=== PATIENT | female | born 1990 | race Caucasian/White ===

== ENCOUNTER 2017-05-29 06:09 | Inpatient (IN) | payer MEDICAID, OTHER ==
[2017-05-29] MEDS ORDERED: NS 1,000 ML IV ONE ×4 (06:23→09:32)
--- NOTE | 2017-05-29 06:32 | CPEKG ---
Heart Rate: 137 RR Interval: 438 P-R Interval: 116 QRSD Interval: 84 QT Interval: 296 QTC Interval: 447 P Stout: 74 QRS Stout: 65 T Wave Stout: -27 EKG Severity - ABNORMAL ECG - EKG Impression: SINUS TACHYCARDIA EKG Impression: NONSPECIFIC REPOL ABNORMALITY, DIFFUSE LEADS Electronically Signed By: Genaro Craft 29-May-2017 09:34:21
[2017-05-29] MEDS ORDERED: ONDANSETRON 4 MG/2 ML VIAL IVP ONE ×2 (06:35→08:48)
[2017-05-29] MEDS ORDERED: LORazepam 2 MG/ML INJ IVP ONE ×3 (06:35→08:15)
[2017-05-29 06:50] LABS: % IMMATURE GRANULYOCYTES 0.7 % (0.0-1.1); ABSOLUTE IMMATURE GRANULOCYTES 0.08 10^3/uL (0.00-0.10); ADD DIFF? NO; ADD MORPH? NO; ADD SCAN? NO; ATYPICAL LYMPHOCYTE FLAG 0 (0-99); FRAGMENT RBC FLAG 0 (0-99); HEMATOCRIT 50.9 % (38.0-47.0); HEMOGLOBIN 18.9 g/dL (12.6-16.3); LEFT SHIFT FLG 20 (0-99); LIPEMIA HEMOLYSIS FLAG 90 (0-99); MEAN CELL HEMOGLOBIN 33.5 pg (27.9-34.1); MEAN CELL HEMOGLOBIN CONCENTR. 37.1 g/dL (32.4-36.7); MEAN CELL VOLUME 90.1 fL (81.5-99.8); MEAN PLATELET VOLUME 9.5 fL (8.7-11.7); PLATELET CLUMPS FLAG 10 (0-99); PLATELET COUNT 275 10^3/uL (150-400); RED BLOOD CELL COUNT 5.65 10^6/uL (4.18-5.33)
[2017-05-29 07:06] LABS: ALANINE AMINOTRANSFERASE 167 IU/L (9-52); ALBUMIN 4.8 g/dL (3.5-5.0); ALKALINE PHOSPHATASE 139 IU/L (38-126); ANION GAP 25 mEq/L (8-16); ASPARTATE AMINOTRANSFERASE 247 IU/L (14-46); BILIRUBIN,TOTAL 2.1 mg/dL (0.1-1.4); BILIRUBIN-CONJUGATED 0.7 mg/dL (0.0-0.5); BILIRUBIN-UNCONJUGATED 1.4 mg/dL (0.0-1.1); CALCIUM 9.7 mg/dL (8.5-10.4); CARBON DIOXIDE 27 mEq/l (22-31); CHLORIDE 77 mEq/L (97-110); CREATININE 0.6 mg/dL (0.6-1.0); ETHANOL SERUM 90 mg/dL (0-10); GLOMERULAR FILTRATION RATE > 60; GLUCOSE 189 mg/dL (70-100); MAGNESIUM 1.9 mg/dL (1.6-2.3); POTASSIUM 2.8 mEq/L (3.5-5.2); SODIUM 129 mEq/L (134-144); TOTAL PROTEIN 8.2 g/dL (6.3-8.2)
[2017-05-29 07:16] LABS: TROPONIN I 0.014 ng/mL (0.000-0.034)
[2017-05-29] MEDS ORDERED: LORazepam 2 MG/ML INJ ONE ×2 (07:18→11:07)
--- NOTE | 2017-05-29 07:27 | EDPHY ---
H & P Time Seen by Provider: 05/29/17 06:54 HPI/ROS: HPI Chest pain. 26-year-old female on foot. She has a history of narcotic abuse and alcohol abuse. She complains of left anterior parasternal chest pain which she describes as sharp and worse with movement as well as worse with palpation of the area, constant for 3 days. She reports she has had some mild shortness of breath with it. No history of trauma. No history of coagulopathy. She is not on control pills. She drinks wine and rum daily. Last drink was yesterday at around 3:00 p.m.. ROS: Constitutional: No fever, no chills. No weakness. Eyes: No discharge. No changes in vision. ENT: No sore throat. No nasal congestion or rhinorrhea. Respiratory: No cough. As above. Cardiac: As above, no palpitations. Gastrointestinal: No abdominal pain, no vomiting, no diarrhea. Genitourinary: No hematuria. No dysuria or increased frequency with urination. Musculoskeletal: No back pain. No neck pain. No myalgias or arthralgias. Skin: No rashes. Neurological: No headache. No focal weakness or altered sensation. Past medical history: Tonsillectomy, alcohol abuse, narcotic abuse, substance abuse. Social history: Nonsmoker. As above. Here by herself. Physical Exam: General Appearance: Alert, anxious. This patient is responding to questions appropriately and in full sentences. This patient appears well-hydrated and well-nourished. Eyes: Pupils equal and round no pallor or injection. No lid edema, erythema or injection. Respiratory: There are no retractions, lungs are clear to auscultation with good air movement bilaterally. Cardiovascular: Regular rate and rhythm. Tachycardia. No murmur. Gastrointestinal: Abdomen is soft and nontender, no masses, bowel sounds normal. No focal tenderness at McBurney's point. No Lindsay sign. Neurological: Motor sensory function is grossly intact. Cranial nerves are normal. Gait is normal. Resting tremor. Skin: Warm and dry, no rashes. Musculoskeletal: Neck is supple and nontender. Extremities are symmetrical. All joints range without pain or impingement. Psychiatric: No agitation. No depression. Database: EKG: EKG time is 6:31 a.m.; EKG shows a narrow complex normal sinus tachycardia with a ventricular rate of 137. The SC, QRS, QT intervals are within normal limits. There are no ST-T wave changes indicative of ischemic or injury pattern. No evidence of right heart strain. Interpreted by me. Imaging: Chest x-ray AP portable; the cardiac mediastinal silhouette is unremarkable. No evidence of infiltrate or pneumothorax. No acute cardiopulmonary disease process noted. Interpreted by me. CT chest angiogram; no evidence of pulmonary embolism, pneumonia, aortic dissection, pericardial effusion. No acute pathology. Results were discussed with staff radiologist Dr. Josue Wade. Procedures: Emergency department course: IV placed. She was placed on a cigarette package examiner. Vital signs reviewed. She is tachycardic and hypertensive. She was initially given 1 mg of IV Ativan for alcohol withdrawal and anxiety. She was started on IV normal saline with 1-2 L to be given over the next 1-2 hours. I evaluated her at 7:25 a.m.. She is wide awake. States that she feels more relaxed but is still anxious. She was given an additional 1 mg of IV Ativan. She was started on a 2nd L of IV normal saline. I reviewed her EKG and chest x-ray. 8:15 a.m., patient re-evaluated. She is sitting upright. She is alert. She is still tremulous. Results of her emergency department workup discussed with her. Need for CT angiogram to evaluate for pulmonary embolism discussed. She consents. She will be given IV magnesium followed by oral potassium. She will be started on 3rd L of IV normal saline. She will be given an additional 1 mg of IV Ativan. 8:40 a.m., patient re-evaluated. She is not taking oral potassium or oral fluids. She had an episode of vomiting. She was given 4 mg of IV Zofran. She still is tachycardic in the 110s to low 120s. She is on her 3rd L of IV normal saline. She has been given 3 mg of IV Ativan. She will be given an additional 4th mg of IV Ativan. She will be admitted to the hospitalist service for alcohol withdrawal, electrolyte abnormalities and chest pain. She will be sent to CT for an angiogram shortly. 8:50 a.m., spoke with hospitalist. Patient accepted for admission to the step- down unit under the care of Dr. Leandro Fitzpatrick. Patient admitted to the step- down unit in stable condition. Differential Diagnosis: The differential diagnosis on this patient includes but is not limited to alcohol withdrawal, costal chondritis, pleurisy. Pulmonary embolism, acute coronary syndrome, myocarditis, pericarditis, pneumothorax, pneumonia unlikely. This represents a partial list of diagnoses considered. These considerations are based on history, physical exam, past history, reassessment and diagnostic testing. Smoking Status: Current some day smoker Constitutional: Initial Vital Signs Temperature (C) 36.5 C 05/29/17 06:16 Heart Rate 140 H 05/29/17 06:16 Respiratory Rate 20 05/29/17 06:16 Blood Pressure 162/93 H 05/29/17 06:16 O2 Sat (%) 93 05/29/17 06:16 O2 Delivery Mode Room Air Allergies/Adverse Reactions: penicillinase [Penicillinase] Allergy (Verified 05/29/17 06:16) Penicillins Allergy (Verified 05/29/17 06:16) Home Medications: Medication Instructions Recorded NK [No Known Home Meds] 05/29/17 Medical Decision Making - Data Points Laboratory Results: Laboratory Results 05/29/17 06:42 05/29/17 08:42 Medications Given: Gabapentin (Neurontin) 300 mg PO TID BULL Stop: 11/26/17 08:59 Last Admin: 05/30/17 09:41 Dose: 300 mg Lidocaine (Lidoderm 5%) 1 ea TD DAILY BULL Stop: 11/25/17 09:44 Last Admin: 05/30/17 08:30 Dose: 1 ea Miscellaneous Information (Patch Removal) 1 ea TD DAILY21 BULL Stop: 11/25/17 20:59 Last Admin: 05/29/17 22:14 Dose: 1 ea Oxycodone HCl (Oxycodone Ir) 5 mg PO Q4HRS PRN PRN Reason: Pain, Severe Able to Take PO Stop: 06/08/17 09:41 Last Admin: 05/30/17 09:41 Dose: 5 mg Pantoprazole Sodium (Protonix) 40 mg PO BID BULL Stop: 11/26/17 09:14 Last Admin: 05/30/17 09:40 Dose: 40 mg Thiamine HCl (Vitamin B-1) 100 mg PO DAILY BULL Stop: 11/26/17 08:59 Last Admin: 05/30/17 08:28 Dose: 100 mg Discontinued Medications Acetaminophen (Tylenol) 650 mg PO Q4HRS PRN PRN Reason: Pain, Mild/Fever, Can Take PO Stop: 11/25/17 09:43 Last Admin: 05/30/17 04:42 Dose: 650 mg Sodium Chloride (Ns) 1,000 mls @ 0 mls/hr IV EDNOW ONE; Wide Open PRN Reason: Protocol Stop: 05/29/17 06:24 Last Admin: 05/29/17 06:47 Dose: 1,000 mls Sodium Chloride (Ns) 1,000 mls @ 0 mls/hr IV EDNOW ONE; Wide Open PRN Reason: Protocol Stop: 05/29/17 06:56 Last Admin: 05/29/17 07:23 Dose: 1,000 mls Magnesium Sulfate (Magnesium Sulf 2 Gm (Premix)) 50 mls @ 50 mls/hr IV EDNOW ONE Stop: 05/29/17 09:14 Last Admin: 05/29/17 08:36 Dose: 50 mls Sodium Chloride (Ns) 1,000 mls @ 0 mls/hr IV EDNOW ONE; Wide Open PRN Reason: Protocol Stop: 05/29/17 08:17 Last Admin: 05/29/17 08:21 Dose: 1,000 mls Pantoprazole Sodium 40 mg/ (Sodium Chloride) 100 mls @ 200 mls/hr IV BID BULL Stop: 11/25/17 09:44 Last Admin: 05/29/17 22:13 Dose: 100 mls Sodium Chloride (Ns) 1,000 mls @ 3,000 mls/hr IV ONCE ONE Stop: 05/29/17 09:51 Last Admin: 05/29/17 09:44 Dose: 1,000 mls Potassium Chloride/Sodium Chloride (Ns W/ 20 Kcl/L) 1,000 mls @ 125 mls/hr IV CONT BULL Stop: 11/25/17 09:44 Last Admin: 05/29/17 22:14 Dose: 1,000 mls Thiamine HCl 500 mg/ Sodium (Chloride) 105 mls @ 210 mls/hr IV ONCE ONE Stop: 05/29/17 10:14 Last Admin: 05/29/17 13:48 Dose: 105 mls Influenza Virus Vaccine Quadrival (Fluarix Quad [id number]) 0.5 ml IM .ONCE ONE Stop: 05/29/17 22:20 Last Admin: 05/29/17 22:30 Dose: 0.5 ml Lorazepam (Ativan Injection) 1 mg IVP EDNOW ONE Stop: 05/29/17 06:36 Last Admin: 05/29/17 06:47 Dose: 1 mg Lorazepam (Ativan Injection) 1 mg IVP EDNOW ONE Stop: 05/29/17 07:20 Last Admin: 05/29/17 07:21 Dose: 1 mg Lorazepam (Ativan Injection) 1 mg IVP EDNOW ONE Stop: 05/29/17 08:16 Last Admin: 05/29/17 08:35 Dose: 1 mg Ondansetron HCl (Zofran) 4 mg IVP EDNOW ONE Stop: 05/29/17 06:36 Last Admin: 05/29/17 06:47 Dose: 4 mg Ondansetron HCl (Zofran) 4 mg IVP EDNOW ONE Stop: 05/29/17 08:49 Last Admin: 05/29/17 08:49 Dose: 4 mg Potassium Chloride (Potassium Chloride Oral Liquid) 20 meq PO EDNOW ONE Stop: 05/29/17 08:17 Last Admin: 05/29/17 08:47 Dose: Not Given Potassium Chloride (Potassium Chloride Oral Liquid) 20 meq PO EDNOW ONE Stop: 05/29/17 08:17 Last Admin: 05/29/17 08:48 Dose: Not Given Potassium Chloride (Klor-Con) 40 meq PO ONCE ONE PRN Reason: Protocol Stop: 05/29/17 16:06 Last Admin: 05/29/17 16:16 Dose: 40 meq Potassium Chloride (Klor-Con) 30 meq PO ONCE ONE PRN Reason: Protocol Stop: 05/29/17 22:13 Last Admin: 05/29/17 22:28 Dose: 30 meq Potassium Chloride (Klor-Con) 20 meq PO ONCE ONE PRN Reason: Protocol Stop: 05/30/17 07:51 Last Admin: 05/30/17 08:29 Dose: 20 meq Promethazine HCl (Phenergan) 12.5 mg IVP ONCE ONE Stop: 05/29/17 09:33 Last Admin: 05/29/17 09:39 Dose: 12.5 mg Departure - Departure Disposition: [facility] Acute Clinical Impression: Chest pain, Alcohol withdrawal, Hypokalemia, Hyponatremia, Dehydration, Tachycardia Condition: Fair
[2017-05-29] MEDS ORDERED: MAGNESIUM SULF 2 GM/WATER 50 ML IV ONE (08:15)
[2017-05-29] MEDS ORDERED: POTASSIUM CL 20 MEQ/15 ML UDCUP PO ONE ×2 (08:16)
[2017-05-29] MEDS ORDERED: IOPAMIDOL (ISOVUE 370) 100 ML BTL IV ONE (08:31)
[2017-05-29] MEDS ORDERED: ONDANSETRON 4 MG/2 ML VIAL ONE (08:39)
[2017-05-29] MEDS ORDERED: PROMETHAZINE HCL 25 MG/ML INJ IVP ONE (09:32)
[2017-05-29] MEDS ORDERED: PROMETHAZINE HCL 25 MG/ML INJ ONE (09:34)
[2017-05-29] MEDS ORDERED: PANTOPRAZOLE SODIUM 40 MG VIAL ONE (09:40)
[2017-05-29] MEDS ORDERED: ONDANSETRON 4 MG/2 ML VIAL IVP PRN (09:44)
[2017-05-29] MEDS ORDERED: ONDANSETRON DISINTEGRATING 4 MG TAB PO PRN (09:44)
[2017-05-29] MEDS ORDERED: THIAMINE HCL 500 MG in NS 100 ML IV ONE (09:45)
[2017-05-29] MEDS ORDERED: LORazepam 2 MG/ML INJ IVP PRN ×2 (09:45→11:13)
[2017-05-29] MEDS ORDERED: PROTOCOL POTASSIUM 1 DOSE MISC PRN (09:47)
[2017-05-29] MEDS ORDERED: PROTOCOL MAGNESIUM 1 DOSE IV PRN (09:47)
[2017-05-29] MEDS ORDERED: PROTOCOL K PHOSPHATE 1 DOSE IV PRN (09:47)
[2017-05-29] MEDS: PANTOPRAZOLE SODIUM 40 MG in NS 100 ML IV SCH ×2 (09:51→22:13)
[2017-05-29] MEDS ORDERED: LIDOCAINE 5% 1 EA PATCH TD ONE (09:57)
[2017-05-29] MEDS: LIDOCAINE 5% 1 EA PATCH TD SCH (10:03)
--- NOTE | 2017-05-29 10:33 | GHP ---
[f rep st] HISTORY AND PHYSICAL DATE OF ADMISSION: 05/29/2017 CHIEF COMPLAINT: Chest pain. HISTORY OF PRESENT ILLNESS: This is a 26-year-old female with a history notable for alcohol abuse wh o presents with chest pain. She had been previously drinking about 375 mL of rum a day. She wanted to cut down and she has been tapering. Slightly before she started tapering she had significant uppe r GI symptoms with a lot of vomiting. She notes that she had one episode of bloody vomit but that darby s resolved as of about a week and half ago when she began this. She has no real abdominal pain. She has never had withdrawal or seizures before. She is cutting down as she felt as though she was drin ami too much. She has had persistent vomiting for about a week and a half, has kept very little p.o . down with no solids. She notes the chest pain started about 3 days ago, left-sided, sharp in natur e, worse with palpation. She has never had any history of clots or heart disease in the past. PAST MEDICAL/SURGICAL HISTORY: Alcohol abuse. As above. MEDICATIONS: Please see medication reconciliation. ALLERGIES: Penicillins and penicillin. FAMILY HISTORY: Father has been sober now for 20 years but previously had a history of alcohol abuse . SOCIAL HISTORY: She drinks as above. She has been cutting down on smoking. She smokes about 1 ciga rette every other day. She worked at [employer]. REVIEW OF SYSTEMS: A 10-point review of systems is conducted and is negative except per HPI. PHYSICAL EXAMINATION: VITAL SIGNS: Blood pressure 148/92, heart rate 130, respiration rate 18, satu rating 94% on room air, temperature is 36.6. GENERAL: Ms. Boo is a very pleasant female who ap pears uncomfortable, in [id number] distress. She is vomiting. HEENT: Normocephalic, atraumat ic. CARDIOVASCULAR: Tachycardic. There are no murmurs, rubs, or gallops. CHEST: Very tender to p alpation just on the ribs under the left breast where her chest pain is as this triggers her pain. P ULMONARY: Lungs clear to auscultation bilaterally. ABDOMEN: Soft, nontender, nondistended. SKIN: No rash. : No Caicedo. NEUROLOGIC: Alert and oriented x3. She is moving all extremities. PSYCH IATRIC: Normal mood and affect. LABORATORY DATA: White count is 10.8, hemoglobin is 18.9, platelets are 275, D-dimer is 1.03. Sodiu m 129, potassium 2.8, total bilirubin 2.1. AST 247. Troponin is 0.014. Tox screen shows her to hav e an ethyl alcohol level of 90. DATA: 1. I discussed her with Dr. Craft. Will admit to step-down unit. 2. I reviewed her chest and thorax CT angiogram. It shows no PE. Does show hepatic steatosis and h epatomegaly, distended esophagus. 3. ECG, which I personally viewed and interpreted, shows her to have sinus tachycardia. She does darby ve mild ST and T-wave changes predominantly in her precordial leads V3 through V6. IMPRESSION/PLAN: A 26-year-old female, chest pain, alcohol withdrawal. 1. Chest pain: I suspect musculoskeletal. She does have mild EKG abnormalities which I think are m ore related to electrolyte abnormalities and tachycardia. Her chest pain is reproducible on palpatio n. Her CT angio is negative. Will trend her troponins for now but otherwise treat her symptomatical ly with Tylenol and small doses of oxycodone. 2. Persistent nausea and vomiting: I suspect alcoholic gastritis. We will start twice daily PPI, t reat her with antiemetics. If she does not improve, will obtain a GI consultation. 3. Alcohol abuse and withdrawal: She appears to be in some withdrawal at this point. Will place he r on the [facility] protocol and follow her closely. She has received 3 mg of IV Ativan at this point in [facility] emergency department. 4. Tachycardia: Suspect multifactorial including dehydration and alcohol withdrawal. There is no P E. Will follow this with treatment and workup further if this continues. 5. Dehydration: Will aggressively rehydrate her. 6. Hypokalemia/hypomagnesemia: Will replete these aggressively. Will check a phos as well. 7. Mild hepatitis: Will check hepatitis serologies and HIV. I consented her for this. 8. Hyponatremia: Suspect hypovolemic, this should correct quickly. 9. Erythrocythemia: Suspect dehydration. Follow tomorrow. /[id number]/MODL
--- NOTE | 2017-05-29 13:13 | PDMN ---
Medical Necessity Medical necessity: M595 substance related disorders - pt with tachycardia, N/V, mild ST and T wave changes with further monitoring. Hyponatremia, hypokalemia, hypomag. -mildly elevated D -dimer , elevated Liver function tests req further monitoring
[2017-05-29] MEDS: ACETAMINOPHEN 325 MG TAB PO PRN ×2 (13:47→19:09)
[2017-05-29] MEDS: oxyCODONE IR 5 MG TAB PO PRN ×3 (13:47→22:28)
[2017-05-29] MEDS ORDERED: POTASSIUM CL 10 MEQ TAB PO ONE ×2 (16:05→22:12)
[2017-05-29 19:59] LABS: POTASSIUM 3.3 mEq/L (3.5-5.2)
[2017-05-29 20:15] LABS: TROPONIN I 0.017 ng/mL (0.000-0.034)
[2017-05-29] MEDS: NS W/ 20 KCl/L 1,000 ML IV SCH ×2 (21:48→22:14)
[2017-05-29] MEDS: PATCH REMOVAL 1 EA PATCH TD SCH (22:14)
[2017-05-29] MEDS ORDERED: FLU VACC QS 2017-18 (3YR+)/PF 0.5 ML SYR (FLUARIX QUAD) IM ONE (22:19)
[2017-05-30] MEDS: oxyCODONE IR 5 MG TAB PO PRN ×4 (02:29→14:41)
[2017-05-30 04:39] LABS: % IMMATURE GRANULYOCYTES 0.5 % (0.0-1.1); ABSOLUTE IMMATURE GRANULOCYTES 0.03 10^3/uL (0.00-0.10); ADD DIFF? NO; ADD MORPH? NO; ADD SCAN? NO; ATYPICAL LYMPHOCYTE FLAG 0 (0-99); FRAGMENT RBC FLAG 0 (0-99); HEMATOCRIT 40.4 % (38.0-47.0); HEMOGLOBIN 14.2 g/dL (12.6-16.3); LEFT SHIFT FLG 10 (0-99); LIPEMIA HEMOLYSIS FLAG 90 (0-99); MEAN CELL HEMOGLOBIN 33.4 pg (27.9-34.1); MEAN CELL HEMOGLOBIN CONCENTR. 35.1 g/dL (32.4-36.7); MEAN CELL VOLUME 95.1 fL (81.5-99.8); MEAN PLATELET VOLUME 9.4 fL (8.7-11.7); PLATELET CLUMPS FLAG 10 (0-99); PLATELET COUNT 147 10^3/uL (150-400); RED BLOOD CELL COUNT 4.25 10^6/uL (4.18-5.33); RED CELL DISTRIBUTION WIDTH 14.6 % (11.5-15.2)
[2017-05-30] MEDS: ACETAMINOPHEN 325 MG TAB PO PRN (04:42)
[2017-05-30 05:06] LABS: ALANINE AMINOTRANSFERASE 129 IU/L (9-52); ALBUMIN 2.6 g/dL (3.5-5.0); ALKALINE PHOSPHATASE 78 IU/L (38-126); ANION GAP 4 mEq/L (8-16); ASPARTATE AMINOTRANSFERASE 300 IU/L (14-46); BILIRUBIN,TOTAL 3.8 mg/dL (0.1-1.4); CALCIUM 7.5 mg/dL (8.5-10.4); CARBON DIOXIDE 28 mEq/l (22-31); CHLORIDE 99 mEq/L (97-110); CREATININE 0.6 mg/dL (0.6-1.0); GLOMERULAR FILTRATION RATE > 60; GLUCOSE 75 mg/dL (70-100); POTASSIUM 3.5 mEq/L (3.5-5.2); SODIUM 131 mEq/L (134-144); TOTAL PROTEIN 4.8 g/dL (6.3-8.2)
[2017-05-30 05:30] LABS: BILIRUBIN-CONJUGATED 1.3 mg/dL (0.0-0.5); BILIRUBIN-UNCONJUGATED 2.5 mg/dL (0.0-1.1)
[2017-05-30 06:29] LABS: INR 1.15 (0.83-1.16); PROTIME(PATIENT) 14.7 SEC (12.0-15.0)
[2017-05-30 06:55] LABS: TROPONIN I 0.015 ng/mL (0.000-0.034)
--- NOTE | 2017-05-30 07:46 | HOSPPROG ---
Hospitalist Progress Note Assessment/Plan: # gastritis - suspect the etiology of persistent N/V, resolving - cont protonix # dehydration - resolved with IVF # hypoK/hypoMg - replete # hypoNa - better today # etOH abuse - some withdrawal - safe for med surg at this point - cont CIWA, thiamine # bilat leg pain - unclear if cramping from low electrolytes or neuropathy - gabapentin trial # hepatitis - suspect etOH hepatitis + possibly underlying Gilbert's - recheck tomorrow; hold apap # chest pain, msk - better today # remote heroin use - HIV pending Subjective: no emesis overnight; c/o leg pain, bilat, deep Objective: Vital Signs Temp Pulse Resp BP Pulse Ox 36.9 C 91 19 146/83 H 97 05/30/17 07:27 05/30/17 07:27 05/30/17 07:27 05/30/17 07:27 05/30/17 07:27 Laboratory Results 05/30/17 04:30 05/30/17 04:30 05/29/17 05/30/17 05/31/17 05:59 05:59 05:59 Intake Total 3297 Balance 3297 PT 14.7 SEC (12.0-15.0) 05/30/17 05:55 INR 1.15 (0.83-1.16) 05/30/17 05:55 - Physical Exam Constitutional: no apparent distress Cardiovascular: regular rate and rhythym, no murmur, rub, or gallop Respiratory: no respiratory distress, no rales or rhonchi, clear to auscultation Gastrointestinal: normoactive bowel sounds, soft, non-tender abdomen, no palpable masses ICD10 Worksheet Patient Problems: Problems Problem Status Onset Chest pain Acute Alcohol withdrawal Acute Hypokalemia Acute Hyponatremia Acute Dehydration Acute Tachycardia Acute
[2017-05-30] MEDS ORDERED: POTASSIUM CL 10 MEQ TAB PO ONE ×2 (07:50→22:39)
[2017-05-30] MEDS: GABAPENTIN 300 MG CAP PO SCH ×4 (08:28→20:53)
[2017-05-30] MEDS: THIAMINE HCL 100 MG TAB PO SCH (08:28)
[2017-05-30] MEDS: LIDOCAINE 5% 1 EA PATCH TD SCH (08:30)
[2017-05-30] MEDS: PANTOPRAZOLE SODIUM 40 MG TAB PO SCH ×2 (09:40→20:53)
[2017-05-30] MEDS ORDERED: K PHOS 10 MMOL in D5W 250 ML IV ONE (12:00)
--- NOTE | 2017-05-30 14:27 | ASMTCMCOM ---
CM Note CM Note Notes: Pt. is a 26-year-old woman admitted w/ ETOH withdrawal, anxiety, chest pain, and gastritis. Hx. ETOHism (wine and rum), narcotic abuse, and remote heroin use. Per H&P, Pt. has been trying to cut down on ETOH and began vomiting often about 1 1/2 weeks ago. OT recommending home d/c at this time. SWer plans to meet w/ Pt. tomorrow to discuss ETOH/substance treatment resources. Pt. has Medicaid - #[id number]. Date Signed: 05/30/2017 02:26 PM Electronically Signed By:Sera Morse LCSW
[2017-05-30] MEDS: PATCH REMOVAL 1 EA PATCH TD SCH (20:54)
[2017-05-30] MEDS ORDERED: PNEUMOCOCCAL 0.5ML VACCINE VIAL IM ONE (20:55)
[2017-05-30 22:01] LABS: POTASSIUM 3.5 mEq/L (3.5-5.2)
[2017-05-31] MEDS: oxyCODONE IR 5 MG TAB PO PRN (04:06)
[2017-05-31 05:00] LABS: % IMMATURE GRANULYOCYTES 0.9 % (0.0-1.1); ABSOLUTE IMMATURE GRANULOCYTES 0.06 10^3/uL (0.00-0.10); ADD DIFF? NO; ADD MORPH? NO; ADD SCAN? NO; ATYPICAL LYMPHOCYTE FLAG 0 (0-99); FRAGMENT RBC FLAG 0 (0-99); HEMATOCRIT 45.4 % (38.0-47.0); LEFT SHIFT FLG 10 (0-99); LIPEMIA HEMOLYSIS FLAG 90 (0-99); MEAN CELL HEMOGLOBIN 33.1 pg (27.9-34.1); MEAN CELL HEMOGLOBIN CONCENTR. 35.2 g/dL (32.4-36.7); MEAN PLATELET VOLUME 9.6 fL (8.7-11.7); PLATELET CLUMPS FLAG 0 (0-99); PLATELET COUNT 143 10^3/uL (150-400); RED BLOOD CELL COUNT 4.83 10^6/uL (4.18-5.33)
[2017-05-31 05:14] LABS: ALANINE AMINOTRANSFERASE 142 IU/L (9-52); ALBUMIN 2.9 g/dL (3.5-5.0); ALKALINE PHOSPHATASE 102 IU/L (38-126); ASPARTATE AMINOTRANSFERASE 238 IU/L (14-46); BILIRUBIN,TOTAL 4.1 mg/dL (0.1-1.4); CALCIUM 8.8 mg/dL (8.5-10.4); CARBON DIOXIDE 29 mEq/l (22-31); CHLORIDE 94 mEq/L (97-110); CREATININE 0.7 mg/dL (0.6-1.0); GLOMERULAR FILTRATION RATE > 60; GLUCOSE 79 mg/dL (70-100); MAGNESIUM 1.8 mg/dL (1.6-2.3); POTASSIUM 4.3 mEq/L (3.5-5.2); TOTAL PROTEIN 5.3 g/dL (6.3-8.2)
[2017-05-31 05:24] LABS: BILIRUBIN-CONJUGATED 1.9 mg/dL (0.0-0.5); BILIRUBIN-UNCONJUGATED 2.2 mg/dL (0.0-1.1)
[2017-05-31] MEDS: DIAZEPAM 5 MG TAB PO PRN ×2 (05:31→21:41)
[2017-05-31] MEDS: THIAMINE HCL 100 MG TAB PO SCH (08:19)
[2017-05-31] MEDS: LIDOCAINE 5% 1 EA PATCH TD SCH (08:19)
[2017-05-31] MEDS: PANTOPRAZOLE SODIUM 40 MG TAB PO SCH ×2 (08:19→21:38)
[2017-05-31] MEDS: GABAPENTIN 300 MG CAP PO SCH (08:19)
[2017-05-31] MEDS ORDERED: MAGNESIUM SULF 1 GM/DEXTROSE 100 ML IV ONE (08:25)
[2017-05-31 10:38] LABS: ANION GAP 10 mEq/L (8-16); CALCIUM 9.2 mg/dL (8.5-10.4); CARBON DIOXIDE 29 mEq/l (22-31); CHLORIDE 93 mEq/L (97-110); CREATININE 0.7 mg/dL (0.6-1.0); GLOMERULAR FILTRATION RATE > 60; GLUCOSE 93 mg/dL (70-100); SODIUM 132 mEq/L (134-144)
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
--- NOTE | 2017-05-31 12:33 | HOSPPROG ---
Hospitalist Progress Note Assessment/Plan: # gastritis - suspect the etiology of persistent N/V, resolving - cont protonix - should get RX on dc # dehydration - resolved with IVF # hypoK/hypoMg - repleted # hypoNa - better today # etOH abuse - not actively withdrawing any longer - stop CIWA # L ankle sprain - will try walker boot # hepatitis - suspect etOH hepatitis + possibly underlying Gilbert's - recheck tomorrow - low DF - no need for steroids # chest pain, msk # remote heroin use - HIV neg # dispo - possibly tomorrow if ambulating better with walker and LFTs peaked Subjective: c/o L ankle pain; needs walker to ambulate Objective: Vital Signs Temp Pulse Resp BP Pulse Ox 37.0 C 91 18 152/103 H 95 05/31/17 11:39 05/31/17 11:39 05/31/17 11:39 05/31/17 11:39 05/31/17 11:39 Laboratory Results 05/31/17 04:52 05/31/17 10:08 05/30/17 05/31/17 06/01/17 05:59 05:59 05:59 Intake Total 3297 310 Balance 3297 310 PT 14.7 SEC (12.0-15.0) 05/30/17 05:55 INR 1.15 (0.83-1.16) 05/30/17 05:55 - Physical Exam Constitutional: no apparent distress, appears nourished Ears, Nose, Mouth, Throat: moist mucous membranes Cardiovascular: regular rate and rhythym, no murmur, rub, or gallop, systolic murmur Respiratory: no respiratory distress, no rales or rhonchi, clear to auscultation Gastrointestinal: normoactive bowel sounds, soft, non-tender abdomen, no palpable masses Musculoskeletal: other (mild L ankle edema) ICD10 Worksheet Patient Problems: Problems Problem Status Onset Chest pain Acute Alcohol withdrawal Acute Hypokalemia Acute Hyponatremia Acute Dehydration Acute Tachycardia Acute
[2017-05-31 19:13] LABS: ANION GAP 11 mEq/L (8-16); SODIUM 134 mEq/L (134-144)
[2017-05-31 19:19] LABS: POTASSIUM 3.9 mEq/L (3.5-5.2)
[2017-05-31] MEDS: PATCH REMOVAL 1 EA PATCH TD SCH (21:39)
[2017-05-31] MEDS ORDERED: POTASSIUM CL 10 MEQ TAB PO ONE (21:42)
[2017-06-01 03:52] VITALS: O2SAT 95
[2017-06-01 05:23] LABS: ALANINE AMINOTRANSFERASE 106 IU/L (9-52); ALKALINE PHOSPHATASE 96 IU/L (38-126); ANION GAP 11 mEq/L (8-16); ASPARTATE AMINOTRANSFERASE 104 IU/L (14-46); BILIRUBIN,TOTAL 2.4 mg/dL (0.1-1.4); CALCIUM 8.9 mg/dL (8.5-10.4); CARBON DIOXIDE 26 mEq/l (22-31); CHLORIDE 99 mEq/L (97-110); CREATININE 0.7 mg/dL (0.6-1.0); GLOMERULAR FILTRATION RATE > 60; GLUCOSE 86 mg/dL (70-100); POTASSIUM 4.3 mEq/L (3.5-5.2); SODIUM 136 mEq/L (134-144); TOTAL PROTEIN 5.5 g/dL (6.3-8.2)
[2017-06-01 05:31] LABS: BILIRUBIN-UNCONJUGATED 1.4 mg/dL (0.0-1.1)
[2017-06-01 07:13] VITALS: RESP 14
--- NOTE | 2017-06-01 08:55 | HOSPPROG ---
Hospitalist Progress Note Assessment/Plan: # gastritis - suspect the etiology of persistent N/V, resolving - cont protonix - should get RX on dc # dehydration - resolved with IVF # hypoK/hypoMg - repleted # hypoNa - better today # etOH abuse - not actively withdrawing any longer - stop CIWA # L ankle sprain - will try walker boot # hepatitis - suspect etOH hepatitis + possibly underlying Gilbert's - continues to improve - low DF - no need for steroids # chest pain, msk # remote heroin use - HIV neg # dispo -home today > 30 minutes on dc Subjective: feels well. not tachycardic Objective: Vital Signs Temp Pulse Resp BP Pulse Ox 37.1 C 84 14 155/99 H 95 06/01/17 07:12 06/01/17 07:12 06/01/17 07:12 06/01/17 07:12 06/01/17 07:12 Laboratory Results 05/31/17 04:52 06/01/17 04:43 05/31/17 06/01/17 06/02/17 05:59 05:59 05:59 Intake Total 310 Balance 310 PT 14.7 SEC (12.0-15.0) 05/30/17 05:55 INR 1.15 (0.83-1.16) 05/30/17 05:55 - Physical Exam Constitutional: no apparent distress, appears nourished Eyes: PERRL, anicteric sclera Ears, Nose, Mouth, Throat: moist mucous membranes, hearing normal Cardiovascular: regular rate and rhythym, no murmur, rub, or gallop Respiratory: no respiratory distress, no rales or rhonchi Gastrointestinal: normoactive bowel sounds, soft, non-tender abdomen Genitourinary: no bladder fullness, No rousseau in urethra Skin: warm, normal color Musculoskeletal: full muscle strength, No joint effusion, No joint tenderness Neurologic: AAOx3 ICD10 Worksheet Patient Problems: Problems Problem Status Onset Alcohol withdrawal Acute Chest pain Acute Dehydration Acute Hypokalemia Acute Hyponatremia Acute Tachycardia Acute
[2017-06-01] MEDS: LIDOCAINE 5% 1 EA PATCH TD SCH (09:10)
[2017-06-01] MEDS: PANTOPRAZOLE SODIUM 40 MG TAB PO SCH (09:10)
[2017-06-01] MEDS: THIAMINE HCL 100 MG TAB PO SCH (09:10)
--- NOTE | 2017-06-01 09:22 | GDS ---
[f rep st] DISCHARGE SUMMARY DISCHARGE DIAGNOSES: 1. Left ankle sprain. 2. Mild alcohol withdrawal. 3. Alcoholic hepatitis. 4. Chest pain attributed to esophageal process. 5. Alcoholism. HOSPITAL COURSE: Please see admission history and physical by Dr. Leandro Fitzpatrick. The patient pre sented with chest pain. She had negative CT PE. She had an EKG that was nonischemic. She had negat brain troponin on presentation. She had elevated LFTs consistent with mild alcoholic hepatitis. This trended back towards normal. The patient had mild alcohol withdrawal requiring CIWA for a couple of days. She had ankle pain but she was able to bear weight. Film was not obtained. The patient recei corinne a boot. She had negative hepatitis serologies, negative HIV test. She was given a lidocaine pat ch and Protonix for discharge prescriptions. /[id number]/MODL
[2017-06-01 11:26] VITALS: BP 137/81; PULSE 98; TEMP 98.1
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
== END 2017-06-01 14:30 | disposition home or self-care (01) | DRG 392 ==
LOC: F2N 11:59 → F3E 05-30 10:06
PROVIDERS: ADMIT Student in an Organized Health Care Education/Training Program; ATTEND Student in an Organized Health Care Education/Training Program
DX: K29.70 Gastritis, unspecified, without bleeding (principal); F10.239 Alcohol dependence with withdrawal, unspecified; R00.0 Tachycardia, unspecified; E86.0 Dehydration; E87.6 Hypokalemia; E83.42 Hypomagnesemia; K70.10 Alcoholic hepatitis without ascites; E87.1 Hypo-osmolality and hyponatremia; S93.402A Sprain of unspecified ligament of left ankle, initial encounter; X58.XXXA Exposure to other specified factors, initial encounter; Z23 Encounter for immunization
CPT/HCPCS: 80305; 96365; 97116-GP; 97161-GP; 97165-GO; 97535-GO; G0008; G0009; G0472; G0480; J2060; J2405; J2550; J3411; J3475; Q9967

== ENCOUNTER 2018-01-16 12:51 | Emergency (ER) | payer MEDICAID ==
--- NOTE | 2018-01-16 14:43 | EDPHY ---
H & P Time Seen by Provider: 01/16/18 13:57 HPI/ROS: CHIEF COMPLAINT: Cellulitis HISTORY OF PRESENT ILLNESS: 27-year-old female presents to the emergency department with cellulitis to her left flank area. The patient does not know she was bit by something. She thought maybe it was a spider bite of some kind. She developed some redness and then the redness was spreading to her abdomen. No fevers or chills. She was describing intense itching initially and tried some hydrocortisone and some ice. She presents now with more surrounding redness. She states that it is also starting to drain on its own. She believes her tetanus shot is current. ROS: Denies chest pain or difficulty breathing. Denies abdominal pain. No fevers or chills. Past Medical/Surgical History: Tonsillectomy, alcoholism, substance abuse, endometriosis, panic attacks Social History: Single Smoking Status: Current every day smoker Physical Exam: On examination the patient has an area of excoriation to the left flank with some surrounding redness and some induration. It is mildly tender to palpate. There is no palpable fluctuance or evidence of abscess. There is some serous drainage noted. There is some lymphangitis and redness express bending anteriorly into the abdomen. There is no palpable left axillary lymphadenopathy. She is afebrile and nontoxic-appearing. Constitutional: Initial Vital Signs Temperature (C) 36.9 C 01/16/18 13:02 Heart Rate 83 01/16/18 13:02 Respiratory Rate 16 01/16/18 13:02 Blood Pressure 87/70 L 01/16/18 13:02 O2 Sat (%) 97 01/16/18 13:02 O2 Delivery Mode Room Air Allergies/Adverse Reactions: penicillinase [Penicillinase] Allergy (Verified 01/16/18 13:02) Penicillins Allergy (Verified 01/16/18 13:02) Home Medications: Medication Instructions Recorded Cephalexin [Keflex] 500 mg PO QID #28 cap 01/16/18 Sulfamethox/Tmp 800/160 mg 1 tab PO BID #14 tab 01/16/18 [Bactrim DS] MDM/Departure - MDM ED Course/Re-evaluation: 37-year-old female presents to the emergency department with infection in her left flank area. She will be treated with oral antibiotics. She is nontoxic- appearing. She is afebrile. She has been applying ice and cortisone to the area for the itching. She was advised not to use the cortisone. She was encouraged to return to the emergency department sooner if he developed fever, increasing pain, or if she felt worse in any way. - Depart Disposition: Home, Routine, Self-Care Clinical Impression: Cellulitis left flank Condition: Good Instructions: Cellulitis (ED) Additional Instructions: Keflex and Bactrim as directed for 1 week. Warm compresses as discussed. Ibuprofen 600 mg every 8 hr as needed for pain. Return to the emergency department if you develop fever, increasing pain, chills or feeling achy, or if you feel worse in any way. Prescriptions: Cephalexin [Keflex] 500 mg PO QID #28 cap Sulfamethox/Tmp 800/160 mg [Bactrim DS] 1 tab PO BID #14 tab Referrals: Kwame Christensen [Doctor of Osteopathy] - 2-3 days, if not improved (Primary care provider electronic train control technician)
[2018-01-16 15:15] VITALS: BP 108/60
== END 2018-01-16 15:14 | disposition home or self-care (01) ==
DX: L03.311 Cellulitis of abdominal wall (principal); F17.200 Nicotine dependence, unspecified, uncomplicated